=== PATIENT | female | born 1935 | race Caucasian/White ===

== ENCOUNTER 2017-09-05 20:48 | Inpatient (IN) | payer MEDICARE, MEDICAID ==
[~2017-09-05] VITALS: Ht 167.6 cm; Wt 58.4 kg
[~2017-09-05 20:48] MED LIST: AMIT25TA PO; CALC-570 PO; CARI350T PO; DOCU240C31 PO; DULO30CA2 PO; FENT1PAT77 TD; FERR325T18 PO; FOLI-17 PO; HYDR-3150 PO; LEVO200T PO; LEVO300T4 PO; LEVO750T6 PO; LEVO75TA5 PO; LISI-170 PO; LISI-420 PO; MAGN400T26 PO; METH2.5T PO; MORP60CP12 PO; OXYC15TA PO; OXYC5CAP2 PO; PARO20TA4 PO; PRED20TA PO; PREG75CA PO; ROPI0.2537 PO; SODI1TAB15 PO; SULF1TAB24 PO; VENL37.52 PO; VENL75CA PO
[2017-09-05] MEDS ORDERED: SODIUM CHLORIDE 0.9% 1,000ML IVBOLUS ONE (21:30)
[2017-09-05] MEDS ORDERED: SODIUM CHLORIDE FLUSH 10ML SYR IVF ONE (21:30)
[2017-09-05 21:58] LABS: HEMOGLOBIN 9.9 g/dL (11.7-16.4); WHITE BLOOD COUNT 10.9 x10^3/uL (3.4-10)
[2017-09-05 22:01] LABS: ASPARTATE AMINO TRANSFERASE 12 U/L (15-37); BLOOD UREA NITROGEN 18 mg/dL (7-18)
[2017-09-05 22:14] LABS: IS PT STATUS REG ER OR PRE ER? YES
[2017-09-05] MEDS ORDERED: OMNIPAQUE 350 MG/ML, 100ML BOTTLE ONE (22:33)
[2017-09-05] MEDS ORDERED: PIPERACILLIN/TAZO/PMX 3.375GM 50 ML IV ONE (23:30)
[2017-09-05] MEDS ORDERED: CHOL2000 PO (23:39)
[2017-09-05] MEDS ORDERED: LIOT5TAB10 PO (23:39)
[2017-09-05] MEDS ORDERED: HYDR-3307 PO (23:39)
[2017-09-05] MEDS ORDERED: LEVO100T5 PO (23:39)
[2017-09-05] MEDS ORDERED: DOCU100C33 PO (23:39)
[2017-09-05] MEDS ORDERED: VENL75CA PO (23:39)
[2017-09-05] MEDS ORDERED: OXYC10TA6 PO (23:39)
[2017-09-05] MEDS ORDERED: FERR324T5 PO (23:39)
[2017-09-06] VITALS (7 sets, daily range): BP systolic 130–178; BP diastolic 68–135
[2017-09-06] MEDS ORDERED: TEMAZEPAM 15 MG CAPSULE PO PRN
[2017-09-06] MEDS ORDERED: ONDANSETRON ODT 4 MG PO PRN
[2017-09-06] MEDS ORDERED: LABETALOL 5MG/ML, 20ML IVPush PRN
[2017-09-06] MEDS ORDERED: AZITHROMYCIN 500 MG in SODIUM CHLORIDE 0.9% 250 ML IV ONE
[2017-09-06] MEDS ORDERED: CEFTRIAXONE PMX 1GM/50ML 50 ML IV ONE
[2017-09-06] MEDS ORDERED: DOCUSATE 100 MG CAPSULE PO PRN
[2017-09-06] MEDS ORDERED: ACETAMINOPHEN 325 MG TABLET PO PRN
[2017-09-06] MEDS ORDERED: GUAIFENESIN/DM 200-20MG, 10ML UDC PO PRN
[2017-09-06] MEDS ORDERED: CEFTRIAXONE PMX 1GM/50ML 50 ML ONE (00:28)
[2017-09-06] MEDS: SODIUM CHLORIDE 0.9% 1,000 ML IV SCH ×2 (02:20→15:08)
[2017-09-06] MEDS: HYDROcodone/APAP 10/325 MG TABLET PO PRN (02:57)
[2017-09-06 05:08] LABS: HEMATOCRIT 31.7 % (34.6-47.8); HEMOGLOBIN 9.9 g/dL (11.7-16.4); WHITE BLOOD COUNT 10.4 x10^3/uL (3.4-10)
[2017-09-06 05:17] LABS: BLOOD UREA NITROGEN 15 mg/dL (7-18)
[2017-09-06] MEDS: LEVOTHYROXINE 100 MCG TABLET PO SCH (05:51)
[2017-09-06] MEDS: ALBUTEROL/IPRATROPIUM 2.5MG/0.5MG, 3 ML NPPB PRN (07:30)
[2017-09-06] MEDS: methylPREDNISolone SOD SUCC 125 MG/2 ML IVPush SCH ×3 (08:23→22:01)
[2017-09-06] MEDS: DOCUSATE 100 MG CAPSULE PO SCH (08:24)
[2017-09-06] MEDS: LIOTHYRONINE 5 MCG TABLET PO SCH (08:24)
[2017-09-06] MEDS: FERROUS SULFATE 325 MG TABLET PO SCH (08:24)
[2017-09-06] MEDS: VENLAFAXINE 75 MG CAP ER PO SCH (08:24)
[2017-09-06] MEDS: CHOLECALCIFEROL 1,000 UNIT TABLET PO SCH (08:25)
[2017-09-06] MEDS ORDERED: LORazepam 2 MG/ML, 1ML IVPush ONE (09:00)
[2017-09-06] MEDS ORDERED: hydrALAzine 20 MG/ML, 1ML IV ONE (09:00)
[2017-09-06] MEDS ORDERED: hydrALAzine 20 MG/ML, 1ML ONE (09:01)
[2017-09-06] MEDS ORDERED: LORazepam 2 MG/ML, 1ML ONE (09:02)
[2017-09-06] MEDS ORDERED: ALBUTEROL SULFATE 2.5 MG/3 ML ONE (09:03)
[2017-09-06] MEDS: PIPERACILLIN/TAZO/PMX 4.5GM 100 ML IV SCH ×3 (09:21→22:01)
[2017-09-06] MEDS: ENOXAPARIN 40 MG/0.4 ML SQ SCH (09:21)
[2017-09-06 09:23] LABS: ABG COLLECTION SITE LEFT BRACHIAL
[2017-09-06 09:39] LABS: IS PT STATUS REG ER OR PRE ER? NO
[2017-09-06] MEDS: morphine SULFATE 10 MG/ML, 1ML IVPush PRN ×3 (09:57→19:16)
[2017-09-06] MEDS ORDERED: CEFTRIAXONE PMX 1GM/50ML 50 ML IV SCH (12:00)
[2017-09-06] MEDS: LORazepam 2 MG/ML, 1ML IVPush PRN ×2 (12:41→22:09)
[2017-09-06] MEDS: CIPROFLOXACIN OPHTH SOLN 0.3%, 5ML EACHEYE SCH ×2 (15:03→20:39)
[2017-09-06 15:05] LABS: ABG COLLECTION SITE RIGHT RADIAL; COLLATERAL CIRCULATION TESTING NORMAL
[2017-09-07] MEDS ORDERED: AZITHROMYCIN 500 MG in SODIUM CHLORIDE 0.9% 250 ML IV SCH
[2017-09-07 01:32] VITALS: BP 152/72
[2017-09-07] MEDS: LORazepam 2 MG/ML, 1ML IVPush PRN ×5 (03:32→23:43)
[2017-09-07] MEDS: methylPREDNISolone SOD SUCC 125 MG/2 ML IVPush SCH ×4 (04:05→23:43)
[2017-09-07] MEDS: PIPERACILLIN/TAZO/PMX 4.5GM 100 ML IV SCH ×4 (04:05→23:43)
[2017-09-07 05:04] LABS: HEMOGLOBIN 10.6 g/dL (11.7-16.4); WHITE BLOOD COUNT 11.4 x10^3/uL (3.4-10)
[2017-09-07 05:26] LABS: BLOOD UREA NITROGEN 21 mg/dL (7-18)
[2017-09-07 05:31] LABS: ASPARTATE AMINO TRANSFERASE 29 U/L (15-37)
[2017-09-07] MEDS: SODIUM CHLORIDE 0.9% 1,000 ML IV SCH ×2 (05:37→17:54)
[2017-09-07] MEDS: LEVOTHYROXINE 100 MCG TABLET PO SCH (05:41)
[2017-09-07] MEDS: ALBUTEROL/IPRATROPIUM 2.5MG/0.5MG, 3 ML NPPB PRN (07:01)
[2017-09-07 07:55] VITALS: BP 144/66
[2017-09-07] MEDS: VENLAFAXINE 75 MG CAP ER PO SCH (09:00)
[2017-09-07] MEDS: DOCUSATE 100 MG CAPSULE PO SCH (09:00)
[2017-09-07] MEDS: LIOTHYRONINE 5 MCG TABLET PO SCH (09:00)
[2017-09-07] MEDS: FERROUS SULFATE 325 MG TABLET PO SCH (09:00)
[2017-09-07] MEDS: CHOLECALCIFEROL 1,000 UNIT TABLET PO SCH (09:00)
[2017-09-07] MEDS: CIPROFLOXACIN OPHTH SOLN 0.3%, 5ML EACHEYE SCH ×2 (09:24→21:49)
[2017-09-07] MEDS: ENOXAPARIN 40 MG/0.4 ML SQ SCH (09:24)
[2017-09-07] MEDS: morphine SULFATE 10 MG/ML, 1ML IVPush PRN ×4 (09:39→23:43)
[2017-09-07] MEDS: ALBUTEROL/IPRATROPIUM 2.5MG/0.5MG, 3 ML NPPB SCH ×3 (11:00→20:10)
[2017-09-07 12:32] VITALS: BP 172/79
[2017-09-07 19:45] VITALS: BP 168/80
[2017-09-07] MEDS ORDERED: ACETAMINOPHEN 325 MG TABLET PO PRN (20:00)
[2017-09-07] MEDS ORDERED: ONDANSETRON ODT 4 MG PO PRN (20:00)
[2017-09-07] MEDS ORDERED: ALBUTEROL/IPRATROPIUM 2.5MG/0.5MG, 3 ML NPPB PRN (20:00)
[2017-09-07] MEDS ORDERED: TEMAZEPAM 15 MG CAPSULE PO PRN (20:00)
[2017-09-07] MEDS ORDERED: DOCUSATE 100 MG CAPSULE PO PRN (20:00)
[2017-09-08 01:15] VITALS: BP 144/68
[2017-09-08] MEDS: morphine SULFATE 10 MG/ML, 1ML IVPush PRN ×4 (04:20→23:29)
[2017-09-08] MEDS: LORazepam 2 MG/ML, 1ML IVPush PRN ×2 (04:20→23:29)
[2017-09-08 05:27] LABS: HEMATOCRIT 31.8 % (34.6-47.8); HEMOGLOBIN 10.1 g/dL (11.7-16.4); WHITE BLOOD COUNT 20.6 x10^3/uL (3.4-10)
[2017-09-08 05:39] LABS: BLOOD UREA NITROGEN 27 mg/dL (7-18)
[2017-09-08] MEDS: LEVOTHYROXINE 100 MCG TABLET PO SCH (06:00)
[2017-09-08] MEDS: PIPERACILLIN/TAZO/PMX 4.5GM 100 ML IV SCH ×3 (06:19→20:08)
[2017-09-08] MEDS: methylPREDNISolone SOD SUCC 125 MG/2 ML IVPush SCH ×4 (06:19→21:16)
[2017-09-08] MEDS: ALBUTEROL/IPRATROPIUM 2.5MG/0.5MG, 3 ML NPPB SCH ×4 (07:00→20:03)
[2017-09-08 07:14] VITALS: BP 151/72
[2017-09-08] MEDS: LIOTHYRONINE 5 MCG TABLET PO SCH (09:00)
[2017-09-08] MEDS: CHOLECALCIFEROL 1,000 UNIT TABLET PO SCH (09:00)
[2017-09-08] MEDS: VENLAFAXINE 75 MG CAP ER PO SCH (09:00)
[2017-09-08] MEDS: FERROUS SULFATE 325 MG TABLET PO SCH (09:00)
[2017-09-08] MEDS: DOCUSATE 100 MG CAPSULE PO SCH (09:00)
[2017-09-08] MEDS: SODIUM CHLORIDE 0.9% 1,000 ML IV SCH ×2 (09:20→23:31)
[2017-09-08] MEDS: ENOXAPARIN 40 MG/0.4 ML SQ SCH (09:20)
[2017-09-08] MEDS: CIPROFLOXACIN OPHTH SOLN 0.3%, 5ML EACHEYE SCH ×2 (09:20→21:17)
[2017-09-08 13:40] VITALS: BP 155/74
[2017-09-08 19:32] VITALS: BP 156/87
[2017-09-08] MEDS: ONDANSETRON 2MG/ML, 2ML IVPush PRN (20:07)
[2017-09-09 01:48] VITALS: BP 145/77
[2017-09-09] MEDS: PIPERACILLIN/TAZO/PMX 4.5GM 100 ML IV SCH ×4 (02:00→20:23)
[2017-09-09] MEDS: methylPREDNISolone SOD SUCC 125 MG/2 ML IVPush SCH ×4 (03:24→22:45)
[2017-09-09] MEDS: morphine SULFATE 10 MG/ML, 1ML IVPush PRN (04:00)
[2017-09-09] MEDS: ONDANSETRON 2MG/ML, 2ML IVPush PRN (04:00)
[2017-09-09] MEDS: ALBUTEROL/IPRATROPIUM 2.5MG/0.5MG, 3 ML NPPB SCH ×4 (07:00→20:13)
[2017-09-09 08:34] VITALS: BP 142/70
[2017-09-09] MEDS: LIOTHYRONINE 5 MCG TABLET PO SCH (09:00)
[2017-09-09] MEDS: DOCUSATE 100 MG CAPSULE PO SCH (09:00)
[2017-09-09] MEDS: CHOLECALCIFEROL 1,000 UNIT TABLET PO SCH (09:00)
[2017-09-09] MEDS: FERROUS SULFATE 325 MG TABLET PO SCH (09:00)
[2017-09-09] MEDS: VENLAFAXINE 75 MG CAP ER PO SCH (09:00)
[2017-09-09] MEDS: ENOXAPARIN 40 MG/0.4 ML SQ SCH (09:22)
[2017-09-09] MEDS: LEVOTHYROXINE 100 MCG INJ IVPush SCH (09:22)
[2017-09-09] MEDS: CIPROFLOXACIN OPHTH SOLN 0.3%, 5ML EACHEYE SCH ×2 (09:23→20:23)
[2017-09-09 09:45] LABS: HEMATOCRIT 30.5 % (34.6-47.8); HEMOGLOBIN 9.5 g/dL (11.7-16.4)
[2017-09-09 09:48] LABS: BLOOD UREA NITROGEN 29 mg/dL (7-18)
[2017-09-09] MEDS ORDERED: POTASSIUM CHLORIDE 40 MEQ in SODIUM CHLORIDE 0.9% 500 ML IV ONE (11:30)
[2017-09-09 15:45] VITALS: BP 163/75
[2017-09-09 17:42] LABS: HEMATOCRIT 31.8 % (34.6-47.8)
[2017-09-09 18:56] VITALS: BP 156/72
[2017-09-09] MEDS ORDERED: NS + 20MEQ KCL 1,000 ML IV SCH ×2 (19:30→20:00)
[2017-09-09] MEDS: NS + 20MEQ KCL 1,000 ML IV SCH (20:28)
[2017-09-09 20:48] LABS: OCCBLD OBC PASS
[2017-09-10 01:17] VITALS: BP 151/65
[2017-09-10] MEDS: PIPERACILLIN/TAZO/PMX 4.5GM 100 ML IV SCH ×4 (02:04→20:21)
[2017-09-10] MEDS: PANTOPRAZOLE 40 MG IV IVPush SCH ×2 (02:04→08:41)
[2017-09-10] MEDS: methylPREDNISolone SOD SUCC 125 MG/2 ML IVPush SCH ×3 (04:01→22:08)
[2017-09-10 05:44] LABS: HEMATOCRIT 31.7 % (34.6-47.8); HEMOGLOBIN 10.1 g/dL (11.7-16.4)
[2017-09-10 06:09] LABS: BLOOD UREA NITROGEN 28 mg/dL (7-18)
[2017-09-10] MEDS: ALBUTEROL/IPRATROPIUM 2.5MG/0.5MG, 3 ML NPPB SCH ×4 (07:05→19:31)
[2017-09-10 08:00] VITALS: BP 168/70
[2017-09-10] MEDS: LEVOTHYROXINE 100 MCG INJ IVPush SCH (08:40)
[2017-09-10] MEDS: FERROUS SULFATE 325 MG TABLET PO SCH (08:41)
[2017-09-10] MEDS: CHOLECALCIFEROL 1,000 UNIT TABLET PO SCH (08:41)
[2017-09-10] MEDS: CIPROFLOXACIN OPHTH SOLN 0.3%, 5ML EACHEYE SCH ×2 (08:41→20:20)
[2017-09-10] MEDS: VENLAFAXINE 75 MG CAP ER PO SCH (08:41)
[2017-09-10] MEDS: LIOTHYRONINE 5 MCG TABLET PO SCH (08:42)
[2017-09-10] MEDS: DOCUSATE 100 MG CAPSULE PO SCH (08:42)
[2017-09-10] MEDS: HYDROcodone/APAP 10/325 MG TABLET PO PRN ×2 (10:07→22:19)
[2017-09-10] MEDS: NS + 20MEQ KCL 1,000 ML IV SCH (10:10)
[2017-09-10 14:41] VITALS: BP 167/78
[2017-09-10 20:54] VITALS: BP 153/83
[2017-09-11 03:15] VITALS: BP 175/75
[2017-09-11] MEDS: PIPERACILLIN/TAZO/PMX 4.5GM 100 ML IV SCH ×2 (03:19→09:00)
[2017-09-11] MEDS: morphine SULFATE 10 MG/ML, 1ML IVPush PRN (03:59)
[2017-09-11 04:30] VITALS: BP 162/71
[2017-09-11 05:56] LABS: HEMATOCRIT 31.9 % (34.6-47.8); WHITE BLOOD COUNT 14.9 x10^3/uL (3.4-10)
[2017-09-11 06:00] LABS: BLOOD UREA NITROGEN 26 mg/dL (7-18)
[2017-09-11] MEDS ORDERED: PANTOPROZOLE 40MG TABLET PO SCH (07:30)
[2017-09-11] MEDS: ALBUTEROL/IPRATROPIUM 2.5MG/0.5MG, 3 ML NPPB SCH ×3 (07:45→15:15)
[2017-09-11 09:00] VITALS: BP 168/65
[2017-09-11] MEDS: VENLAFAXINE 75 MG CAP ER PO SCH (09:00)
[2017-09-11] MEDS: DOCUSATE 100 MG CAPSULE PO SCH (09:00)
[2017-09-11] MEDS: CIPROFLOXACIN OPHTH SOLN 0.3%, 5ML EACHEYE SCH (09:02)
[2017-09-11] MEDS: LEVOTHYROXINE 100 MCG INJ IVPush SCH (09:03)
[2017-09-11] MEDS: LIOTHYRONINE 5 MCG TABLET PO SCH (09:03)
[2017-09-11] MEDS: FERROUS SULFATE 325 MG TABLET PO SCH (09:03)
[2017-09-11] MEDS: CHOLECALCIFEROL 1,000 UNIT TABLET PO SCH (09:04)
[2017-09-11] MEDS: methylPREDNISolone SOD SUCC 125 MG/2 ML IVPush SCH (09:04)
[2017-09-11 13:59] VITALS: BP 142/75
[2017-09-11] MEDS ORDERED: IPRA3AMP NPPB (15:03)
[2017-09-11] MEDS ORDERED: AMOX1TAB64 PO (15:03)
[2017-09-11] MEDS ORDERED: PRED10TA PO (15:03)
[2017-09-11] MEDS ORDERED: PANT40TA5 PO (15:03)
== END 2017-09-11 17:58 | DRG 177 ==
LOC: ED 23:17 → EDIP 23:41 → 3NE 09-06 01:11 → 4WST 09-06 09:47 → 4EST 09-11 15:11
PROVIDERS: ADMIT Internal Medicine; ATTEND Internal Medicine
PROC: 0T9B70Z Drainage of Bladder with Drainage Device, Via Natural or Artificial Opening (ICD-10-PCS; principal; 2017-09-08)
DX: J69.0 Pneumonitis due to inhalation of food and vomit (principal); E43 Unspecified severe protein-calorie malnutrition; J96.01 Acute respiratory failure with hypoxia; N17.0 Acute kidney failure with tubular necrosis; I95.9 Hypotension, unspecified; J44.0 Chronic obstructive pulmonary disease with (acute) lower respiratory infection; J84.10 Pulmonary fibrosis, unspecified; M48.50XA Collapsed vertebra, not elsewhere classified, site unspecified, initial encounter for fracture; D63.8 Anemia in other chronic diseases classified elsewhere; J44.1 Chronic obstructive pulmonary disease with (acute) exacerbation; D75.89 Other specified diseases of blood and blood-forming organs; M06.9 Rheumatoid arthritis, unspecified; E87.6 Hypokalemia; Z66 Do not resuscitate; M19.90 Unspecified osteoarthritis, unspecified site; I10 Essential (primary) hypertension; F03.90 Unspecified dementia, unspecified severity, without behavioral disturbance, psychotic disturbance, mood disturbance, and anxiety; H10.89 Other conjunctivitis; Z87.891 Personal history of nicotine dependence; Z68.20 Body mass index [BMI] 20.0-20.9, adult; Z90.49 Acquired absence of other specified parts of digestive tract; Z90.710 Acquired absence of both cervix and uterus; Z88.6 Allergy status to analgesic agent; Z91.048 Other nonmedicinal substance allergy status; Z79.899 Other long term (current) drug therapy; T38.0X5A Adverse effect of glucocorticoids and synthetic analogues, initial encounter; Y92.89 Other specified places as the place of occurrence of the external cause
CPT/HCPCS: 36415; 36600; 71010; 71275; 80048; 80053; 81001; 82272; 82803; 82962; 83605; 83735; 83880; 84145; 84484; 85014; 85018; 85025; 85610; 85730; 87040; 87086; 93005; 94640; 96365; J0456; J0696; J1650; J2405; J2543; J3480; J7620; Q9967; C9113; J0360; J2060; J2270; J2930; J7030; J7040; J7050